=== PATIENT | female | born 2000 | race Caucasian/White ===

== ENCOUNTER → 2021-07-08 14:48 | Outpatient (CLI) | payer OTHER, SELFPAY ==
--- NOTE | ~2021-07-08 | US_ITS ---
EXAMINATION: US pelvic complete DATE: 07/08/2021 15:02 INDICATION: Pelvic pain Comparison:No prior studies for comparison. TECHNIQUE: Multiple transabdominal and endovaginal sonographic images of the pelvis performed. FINDINGS: The uterus measures 6.6 x 3.1 x 4.2 cm. The endometrial complex measures 5 mm. The right ovary measures a 3.9 x 2.1 x 3.5 cm and the left ovary measures 3 x 1.8 x 2.3 cm. There ar e small follicles in each ovary. Normal doppler signal in both ovaries. There is a 1.8 cm right ovari an cyst. There is no free fluid in the pelvis. There are no abnormal masses seen on either side. IMPRESSION: 1. Right ovarian cyst measuring 1.8 cm. Reviewed, dictated and finalized at location B.
== END ==
PROVIDERS: PCP Family Medicine; Visit Provider Emergency Medicine
DX: N83.201 Unspecified ovarian cyst, right side (principal)
CPT/HCPCS: 76856

== ENCOUNTER → 2021-07-15 16:48 | Outpatient (CLI) | payer OTHER, SELFPAY ==
--- NOTE | ~2021-07-15 | MR_ITS ---
EXAMINATION: MR brain/brain stem wo con EXAM DATE: 07/15/2021 17:33 INDICATION: Involuntary movements . TECHNIQUE: Magnetic resonance imaging (MRI) of the brain/brain stem obtained without contrast. Yue al T1, axial diffusion, gradient echo (T2*), T1, T2, FLAIR sequences obtained. There is no prior st udy for comparison. FINDINGS: Most sequences are limited by metallic artifact probably braces. There are no areas of rest ricted diffusion to suggest acute infarction. There is no acute hemorrhage seen on the T2*, a hemosi eliecer sensitive sequence. No intraparenchymal brain mass. The ventricles are normal in size. There are no extra-axial collections. Flow voids are seen in the cerebral arteries on the T2-weighted sequ ences consistent with their expected patency. The orbits are unremarkable. Soft tissue is unremarka ble. IMPRESSION: Limited but unremarkable brain MRI exam. Reviewed, dictated and finalized at location .
== END ==
PROVIDERS: Visit Provider Emergency Medicine
DX: R25.9 Unspecified abnormal involuntary movements (principal)
CPT/HCPCS: 70551

== ENCOUNTER 2022-06-05 07:41 | Outpatient (CLI) | payer OTHER, SELFPAY ==
--- NOTE | ~2022-06-05 | NM_ITS ---
EXAMINATION: NM hepatobiliary wo pharm DATE: 06/05/2022 12:42 INDICATION: Dyspepsia. COMPARISON: None. TECHNIQUE: 5 mCi Tc-99m mebrofenin (Choletec) was administered intravenously. Scintigraphic images o f the abdomen were obtained for one hour. Then, the patient drank 8 oz Ensure, and imaging was contin ued for 60 minutes. FINDINGS: There is normal clearance of radiotracer from the blood pool. There is homogeneous tracer u ptake by the liver. Activity progresses to the bowel and gallbladder. Gallbladder ejection fraction (GBEF) was 77%. Note that with this technique, normal GBEF >= 33%. IMPRESSION: 1. Normal hepatobiliary scintigraphy. Reviewed, dictated and finalized at location A. ISH RUBBER
== END 2022-06-05 07:42 | disposition home or self-care (01) ==
PROVIDERS: PCP Emergency Medicine; Visit Provider Family Medicine
DX: R10.13 Epigastric pain (principal)
CPT/HCPCS: 78226; A9537

== ENCOUNTER 2023-06-23 14:34 | Outpatient (CLI) | payer OTHER, SELFPAY ==
--- NOTE | ~2023-06-23 | XR_ITS ---
EXAMINATION: XR hand RT min 3V INDICATION: Right fifth finger pain TECHNIQUE: Three views of the right fifth finger are obtained. COMPARISON: None available FINDINGS: Bone alignment is normal. There is no fracture. There appears to be extension at the fifth metacarpophalangeal joint and flexion at the proximal interphalangeal joint. The joint spaces are nor mal. The soft tissues are unremarkable. IMPRESSION: 1. No acute osseous abnormality. Reviewed, dictated and finalized at location F. ER JOURNEYMAN
== END 2023-06-23 14:35 | disposition home or self-care (01) ==
PROVIDERS: PCP Emergency Medicine; Visit Provider Plastic Surgery
DX: M79.641 Pain in right hand (principal)
CPT/HCPCS: 73130